=== PATIENT | male | born 1985 | race Caucasian/White ===

== ENCOUNTER → 2020-09-04 | Outpatient (CLI) | payer MEDICAID | END | disposition home or self-care (01) | LOC: LABWHC1 10:00 | PROVIDERS: ATTEND Family Medicine | DX: Z03.89 Encounter for observation for other suspected diseases and conditions ruled out (principal) | CPT/HCPCS: U0003; C9803 ==

== ENCOUNTER → 2020-09-11 | Outpatient (CLI) | payer MEDICAID ==
--- NOTE | 2020-09-11 11:35 | XR ---
EXAMINATION TYPE: XR shoulder complete LT DATE OF EXAM: 09/11/2020 COMPARISON: NONE HISTORY: Pain TECHNIQUE: Three views are submitted. FINDINGS: The osseous structures are intact. There is no acute fracture or dislocation. Mild hypertrophic harris ge of the AC joint. IMPRESSION: 1. Mild AC joint arthropathy.
== END | disposition home or self-care (01) ==
LOC: RADXRMAIN 11:05
PROVIDERS: ATTEND Nurse Practitioner Family
DX: M12.812 Other specific arthropathies, not elsewhere classified, left shoulder (principal)

== ENCOUNTER 2021-06-18 22:12 | Emergency (ER) | payer MEDICAID ==
[2021-06-18 22:51] VITALS: RESP 18
[2021-06-18 23:23] LABS: Basophils % (A) 0 %; Eosinophils # (A) 0.2 k/uL (0-0.7); Eosinophils % (A) 2 %; HCT 45.3 % (39.0-53.0); HGB 15.5 gm/dL (13.0-17.5); Lymphocytes # (A) 2.1 k/uL (1.0-4.8); Lymphocytes % (A) 20 %; MCHC 34.3 g/dL (31.0-37.0); MCV 87.4 fL (80.0-100.0); Mean Platelet Volume 7.1; Monocytes # (A) 0.7 k/uL (0-1.0); Monocytes % (A) 6 %; Neutrophils # (A) 7.4 k/uL (1.3-7.7); Neutrophils % (A) 70 %; Platelet Count 251 k/uL (150-450); RBC 5.18 m/uL (4.30-5.90); RDW 13.7 % (11.5-15.5); WBC 10.6 k/uL (3.8-10.6)
[2021-06-18 23:31] LABS: Appearance,Urine Clear (Clear); Bilirubin,Urine Negative (Negative); Blood,Urine Small (Negative); Color,Urine Yellow; Glucose,Urine (UA) Negative (Negative); Ketones,Urine Negative (Negative); Leukocyte Esterase,Urine Negative (Negative); Mucus,Urine Many /hpf; Nitrite,Urine Negative (Negative); Protein,Urine 1+ (Negative); RBC,Urine 30 /hpf (0-5); Specific Gravity,Urine 1.032 (1.001-1.035); Squamous Epithelial Cell,Urine <1 /hpf (0-4); WBC,Urine 1 /hpf (0-5)
[2021-06-18 23:47] LABS: ALT 31 U/L (4-49); AST 30 U/L (17-59); African American GFR (CKD) >90 (>60 ml/min/1.73 sqM); Albumin 4.6 g/dL (3.5-5.0); Alkaline Phosphatase 101 U/L (38-126); Anion Gap 11 mmol/L; Blood Urea Nitrogen 13 mg/dL (9-20); Calcium 9.5 mg/dL (8.4-10.2); Carbon Dioxide 22 mmol/L (22-30); Chloride 104 mmol/L (98-107); Glucose 151 mg/dL (74-99); Non-African American GFR(CKD) >90 (>60 ml/min/1.73 sqM); Potassium 3.9 mmol/L (3.5-5.1); Sodium 137 mmol/L (137-145); Total Bilirubin 0.4 mg/dL (0.2-1.3); Total Protein 7.5 g/dL (6.3-8.2)
[2021-06-19] MEDS ORDERED: KETOROLAC 15 MG/ML 1 ML VIAL IVP STA (00:09)
[2021-06-19] MEDS ORDERED: SODIUM CHLORIDE 0.9% 1,000 ML IV STA (00:09)
[2021-06-19] MEDS ORDERED: ONDANSETRON 4 MG/2 ML VIAL IVP STA (00:09)
[2021-06-19] MEDS ORDERED: HYDROmorphone 0.5 MG/0.5 ML SYRINGE IVP STA (00:34)
--- NOTE | 2021-06-19 00:47 | CT ---
EXAMINATION TYPE: CT abdomen pelvis wo con DATE OF EXAM: 06/19/2021 COMPARISON: None HISTORY: right flank pain CT DLP: 2020 mGycm Automated exposure control for dose reduction was used. Images obtained from the diaphragm to the floor the pelvis without contrast. Lung bases are clear. There is no pleural effusion. Heart size is normal. There is no pericardial eff usion. Liver spleen stomach pancreas gallbladder appear normal. Bile ducts are nondilated. There is no adrenal mass. Kidneys have normal size. There is mild right-sided hydronephrosis. There is minimal right side periureteral edema. There is 3 mm calculus in the lower right ureter. The bladd er is almost empty. There is no inguinal hernia. There is no free fluid in the pelvis. There is no si gn of thickened appendix. Appendix appears to be medial and appears normal. There is no mesenteric ed frankie. There is no ascites or free air. There is no bowel obstruction. The lumbar vertebra have normal alignment. There is some degenerative disc space narrowing at L4-5 le gina. There is no compression fracture. Bony pelvis is intact. The hip joints are intact. IMPRESSION: Right side hydronephrosis and mild hydroureter with obstructing calculus distal right ureter. No othe r calculus seen. Normal appendix.
--- NOTE | 2021-06-19 00:58 | ED ---
General Adult HPI - General Chief complaint: Abdominal Pain Stated complaint: ABD/Back pain Time Seen by Provider: 06/18/21 23:34 Source: patient Mode of arrival: ambulatory Limitations: no limitations - History of Present Illness Initial comments: 36-year-old male presents to the emergency room for a chief complaint of right flank pain. Patient states this started about 2 hours prior to arrival. Patient states it radiates to his right lower abdomen. Patient states he thinks it is a kidney stone. He has never had a kidney stone but his parents have had them. He admits to nausea denies vomiting. Denies fevers or chills.Patient has no other complaints at this time including shortness of breath, chest pain, abdominal pain, nausea or vomiting, headache, or visual changes. - Related Data Previous Rx's Medication Instructions Recorded Ketorolac [Toradol] 10 mg PO TID #12 tab 06/19/21 Ondansetron [Zofran ODT] 4 mg PO Q8HR PRN #15 tab 06/19/21 Tamsulosin [Flomax] 0.4 mg PO DAILY #20 cap 06/19/21 Allergies Allergy/AdvReac Type Severity Reaction Status Date / Time No Known Allergies Allergy Verified 06/18/21 22:51 Review of Systems ROS Statement: Those systems with pertinent positive or pertinent negative responses have been documented in the HPI. ROS Other: All systems not noted in ROS Statement are negative. Past Medical History Past Medical History: No Reported History History of Any Multi-Drug Resistant Organisms: None Reported Past Surgical History: Tonsillectomy Past Psychological History: No Psychological Hx Reported Smoking Status: Vaper Past Alcohol Use History: Occasional Past Drug Use History: None Reported General Exam Limitations: no limitations General appearance: alert, in no apparent distress Head exam: Present: atraumatic Eye exam: Present: normal appearance, PERRL, EOMI. Absent: scleral icterus ENT exam: Present: normal exam, mucous membranes moist Neck exam: Present: normal inspection, full ROM. Absent: tenderness Respiratory exam: Present: normal lung sounds bilaterally. Absent: respiratory distress, wheezes Cardiovascular Exam: Present: regular rate, normal rhythm, normal heart sounds GI/Abdominal exam: Present: soft. Absent: distended, tenderness Back exam: Present: CVA tenderness (R). Absent: CVA tenderness (L) Course Vital Signs 08/24/21 22:47 Temperature 98 F Pulse Rate 96 Respiratory 18 Rate Blood Pressure 166/107 O2 Sat by Pulse 97 Oximetry Medical Decision Making - Medical Decision Making Vitals are stable. CBC CMP unremarkable. Urinalysis does show blood. CT shows a 3 mm calculus in the right lower ureter. Xray was obtained for radiology purposes. Patient was given pain medication and did have significant improvement in symptoms. At this time patient can be discharged home. Will follow up with urology. He'll return for any worsening symptoms or - Lab Data Result diagrams: 06/18/21 23:01 06/18/21 23:01 Lab Results 06/18/21 06/18/21 06/18/21 Range/Units 23:01 23:01 23:01 WBC 10.6 (3.8-10.6) k/uL RBC 5.18 (4.30-5.90) m/uL Hgb 15.5 (13.0-17.5) gm/dL Hct 45.3 (39.0-53.0) % MCV 87.4 (80.0-100.0) fL MCH 30.0 (25.0-35.0) pg MCHC 34.3 (31.0-37.0) g/dL RDW 13.7 (11.5-15.5) % Plt Count 251 (150-450) k/uL MPV 7.1 Neutrophils % 70 % Lymphocytes % 20 % Monocytes % 6 % Eosinophils % 2 % Basophils % 0 % Neutrophils # 7.4 (1.3-7.7) k/uL Lymphocytes # 2.1 (1.0-4.8) k/uL Monocytes # 0.7 (0-1.0) k/uL Eosinophils # 0.2 (0-0.7) k/uL Basophils # 0.0 (0-0.2) k/uL Sodium 137 (137-145) mmol/L Potassium 3.9 (3.5-5.1) mmol/L Chloride 104 (98-107) mmol/L Carbon Dioxide 22 (22-30) mmol/L Anion Gap 11 mmol/L BUN 13 (9-20) mg/dL Creatinine 0.84 (0.66-1.25) mg/dL Est GFR (CKD-EPI)AfAm >90 (>60 ml/min/1.73 sqM) Est GFR (CKD-EPI)NonAf >90 (>60 ml/min/1.73 sqM) Glucose 151 H (74-99) mg/dL Calcium 9.5 (8.4-10.2) mg/dL Total Bilirubin 0.4 (0.2-1.3) mg/dL AST 30 (17-59) U/L ALT 31 (4-49) U/L Alkaline Phosphatase 101 (38-126) U/L Total Protein 7.5 (6.3-8.2) g/dL Albumin 4.6 (3.5-5.0) g/dL Urine Color Yellow Urine Appearance Clear (Clear) Urine pH 6.0 (5.0-8.0) Ur Specific [place] 1.032 (1.001-1.035) Urine Protein 1+ H (Negative) Urine Glucose (UA) Negative (Negative) Urine Ketones Negative (Negative) Urine Blood Small H (Negative) Urine Nitrite Negative (Negative) Urine Bilirubin Negative (Negative) Urine Urobilinogen 2.0 (<2.0) mg/dL Ur Leukocyte Esterase Negative (Negative) Urine RBC 30 H (0-5) /hpf Urine WBC 1 (0-5) /hpf Ur Squamous Epith Cells <1 (0-4) /hpf Urine Mucus Many H (None) /hpf Disposition Clinical Impression: Kidney stone Disposition: HOME SELF-CARE Condition: Good Instructions (If sedation given, give patient instructions): Kidney Stones (ED) Additional Instructions: Take Toradol as needed for pain. If pain is severe take Tylenol [address] operate machinery. Do not take Motrin while taking Toradol. Follow-up with urology. Return to the emergency room for any worsening symptoms. Prescriptions: Tamsulosin [Flomax] 0.4 mg PO DAILY #20 cap Ketorolac [Toradol] 10 mg PO TID #12 tab Ondansetron [Zofran ODT] 4 mg PO Q8HR PRN #15 tab PRN Reason: Nausea Is patient prescribed a controlled substance at d/c from ED?: No Referrals: Alexx Welch MD [Primary Care Provider] - 1-2 days Mohit Miller MD [STAFF PHYSICIAN] - 1-2 days Time of Disposition: 01:16
--- NOTE | 2021-06-19 01:14 | XR ---
EXAMINATION TYPE: XR KUB DATE OF EXAM: 06/19/2021 COMPARISON: None HISTORY: Right flank pain TECHNIQUE: 2 views upright FINDINGS: Bowel gas pattern is normal. There is no sign of intestinal obstruction or pneumoperitoneum . Fecal pattern is normal. There are no pathologic calcifications over the kidneys. IMPRESSION: Nonacute abdomen.
[2021-06-19] MEDS ORDERED: ACET/COD 300 MG/30 MG STARTER PACK 6 TAB BTL PO STA (01:16)
[2021-06-19 02:34] VITALS: BP 133/86; PULSE 89; TEMP 98.1
== END 2021-06-19 01:58 | disposition home or self-care (01) ==
LOC: EC 22:12
DX: N13.2 Hydronephrosis with renal and ureteral calculous obstruction (principal); F17.290 Nicotine dependence, other tobacco product, uncomplicated
CPT/HCPCS: 36415; 80053; 85025; 81001; 74018; 74176; 96374; 96375 ×2; 96361; 99284; J2405; J1885; J1170

== ENCOUNTER 2021-06-22 02:27 | Observation (INO) | payer MEDICAID ==
[2021-06-22] MEDS ORDERED: MORPHINE SULFATE 4 MG/ML SYRINGE IV STA ×2 (02:57→04:05)
[2021-06-22 03:24] LABS: Basophils % (A) 0 %; Eosinophils # (A) 0.3 k/uL (0-0.7); Eosinophils % (A) 3 %; HGB 14.7 gm/dL (13.0-17.5); Lymphocytes # (A) 1.5 k/uL (1.0-4.8); Lymphocytes % (A) 14 %; MCH 30.2 pg (25.0-35.0); MCV 86.5 fL (80.0-100.0); Mean Platelet Volume 7.1; Monocytes # (A) 0.6 k/uL (0-1.0); Monocytes % (A) 6 %; Neutrophils # (A) 8.2 k/uL (1.3-7.7); Neutrophils % (A) 76 %; Platelet Count 252 k/uL (150-450); RBC 4.85 m/uL (4.30-5.90); RDW 13.5 % (11.5-15.5); WBC 10.7 k/uL (3.8-10.6)
[2021-06-22 03:34] LABS: Amorphous Sediment,Urine Rare /hpf; Appearance,Urine Clear (Clear); Bilirubin,Urine Negative (Negative); Blood,Urine Large (Negative); Color,Urine Yellow; Glucose,Urine (UA) Negative (Negative); Ketones,Urine Negative (Negative); Leukocyte Esterase,Urine Moderate (Negative); Nitrite,Urine Negative (Negative); PH, Urine 5.5 (5.0-8.0); Protein,Urine Negative (Negative); RBC,Urine 1 /hpf (0-5); Specific Gravity,Urine 1.014 (1.001-1.035); Squamous Epithelial Cell,Urine 2 /hpf (0-4); Urobilinogen,Urine <2.0 mg/dL (<2.0); WBC,Urine 13 /hpf (0-5)
[2021-06-22 03:35] LABS: Albumin 4.4 g/dL (3.5-5.0); Calcium 9.3 mg/dL (8.4-10.2); Potassium 4.1 mmol/L (3.5-5.1); Total Bilirubin 0.5 mg/dL (0.2-1.3); Total Protein 7.3 g/dL (6.3-8.2)
[2021-06-22] MEDS ORDERED: ACETAMINOPHEN TAB 325 MG TAB PO PRN (04:27)
[2021-06-22] MEDS ORDERED: NALOXONE 0.4 MG/ML 1 ML VIAL IV PRN (04:27)
[2021-06-22] MEDS ORDERED: HYDROmorphone 0.5 MG/0.5 ML SYRINGE IVP PRN (04:27)
[2021-06-22] MEDS ORDERED: DOCUSATE 100 MG CAP PO PRN (04:27)
[2021-06-22] MEDS ORDERED: KETOROLAC 15 MG/ML 1 ML VIAL IVP PRN (04:27)
[2021-06-22] MEDS ORDERED: MORPHINE SULFATE 4 MG/ML SYRINGE IV PRN (04:27)
[2021-06-22] MEDS ORDERED: ONDANSETRON 4 MG/2 ML VIAL IVP PRN (04:27)
[2021-06-22] MEDS ORDERED: KETOROLAC 15 MG/ML 1 ML VIAL IVP STA (04:29)
[2021-06-22] MEDS ORDERED: SODIUM CHLORIDE 0.9% 1,000 ML IV SCH (04:30)
--- NOTE | 2021-06-22 04:37 | ED ---
Back Pain HPI - General Chief Complaint: Back Pain/Injury Stated Complaint: Abd Pain Time Seen by Provider: 06/22/21 02:42 Source: patient, family Limitations: no limitations - History of Present Illness MD Complaint: back pain -: days(s) Similar Symptoms Previously: Yes Place: home Radiation: groin Severity: severe Quality: sharp Consistency: constant Improves With: medication Worsens With: none Context: other Associated Symptoms: nausea/vomiting Treatments Prior to Arrival: NSAIDS - Related Data Home Medications Medication Instructions Recorded Confirmed Acetaminophen-Codeine 300-30mg 1 - 2 tab PO Q6H PRN 06/22/21 06/22/21 [Tylenol w/codeine #3] Previous Rx's Medication Instructions Recorded Ketorolac [Toradol] 10 mg PO TID #12 tab 06/19/21 Ondansetron [Zofran ODT] 4 mg PO Q8HR PRN #15 tab 06/19/21 Tamsulosin [Flomax] 0.4 mg PO DAILY #20 cap 06/19/21 Ketorolac [Toradol] 10 mg PO Q6HR PRN #20 tab 06/22/21 Allergies Allergy/AdvReac Type Severity Reaction Status Date / Time No Known Allergies Allergy Verified 06/22/21 08:12 Review of Systems ROS Statement: Those systems with pertinent positive or pertinent negative responses have been documented in the HPI. ROS Other: All systems not noted in ROS Statement are negative. Constitutional: Denies: fever, chills Respiratory: Denies: cough, dyspnea Cardiovascular: Denies: chest pain, palpitations Gastrointestinal: Reports: abdominal pain, nausea. Denies: vomiting, diarrhea, constipation Genitourinary: Reports: testicular pain. Denies: dysuria, frequency, hematuria Musculoskeletal: Denies: back pain Skin: Denies: rash Neurological: Denies: headache, weakness Past Medical History Past Medical History: No Reported History Additional Past Medical History / Comment(s): kidney stone History of Any Multi-Drug Resistant Organisms: None Reported Past Surgical History: Tonsillectomy Past Psychological History: No Psychological Hx Reported Smoking Status: Vaper Past Alcohol Use History: Occasional Past Drug Use History: None Reported General Exam Limitations: no limitations General appearance: alert, in no apparent distress Head exam: Present: atraumatic, normocephalic Eye exam: Present: normal appearance. Absent: scleral icterus, conjunctival injection Respiratory exam: Present: normal lung sounds bilaterally. Absent: respiratory distress, wheezes, rales, rhonchi, stridor Cardiovascular Exam: Present: regular rate, normal rhythm, normal heart sounds. Absent: systolic murmur, diastolic murmur, rubs, gallop GI/Abdominal exam: Present: soft. Absent: distended, tenderness, guarding, rebound, rigid, mass Extremities exam: Present: normal inspection, normal capillary refill. Absent: pedal edema, calf tenderness Back exam: Present: normal inspection, CVA tenderness (R). Absent: tenderness, CVA tenderness (L), vertebral tenderness Neurological exam: Present: alert Skin exam: Present: warm, dry, intact, normal color. Absent: rash Course Vital Signs 06/22/21 06/22/21 02:27 05:11 Temperature 98.5 F Pulse Rate 92 78 Respiratory 22 18 Rate Blood Pressure 161/89 130/78 O2 Sat by Pulse 96 97 Oximetry Medical Decision Making - Medical Decision Making Patient is 36-year-old man with continuing pain related to kidney stone. He took his home medications with only mild relief. He has multiple doses of medication here. Discussed follow-up versus admission, patient requesting admnae flores for further pain management. - Lab Data Result diagrams: 06/22/21 03:14 06/22/21 03:14 Lab Results 06/22/21 06/22/21 06/22/21 Range/Units 03:14 03:14 03:14 WBC 10.7 H (3.8-10.6) k/uL RBC 4.85 (4.30-5.90) m/uL Hgb 14.7 (13.0-17.5) gm/dL Hct 42.0 (39.0-53.0) % MCV 86.5 (80.0-100.0) fL MCH 30.2 (25.0-35.0) pg MCHC 35.0 (31.0-37.0) g/dL RDW 13.5 (11.5-15.5) % Plt Count 252 (150-450) k/uL MPV 7.1 Neutrophils % 76 % Lymphocytes % 14 % Monocytes % 6 % Eosinophils % 3 % Basophils % 0 % Neutrophils # 8.2 H (1.3-7.7) k/uL Lymphocytes # 1.5 (1.0-4.8) k/uL Monocytes # 0.6 (0-1.0) k/uL Eosinophils # 0.3 (0-0.7) k/uL Basophils # 0.0 (0-0.2) k/uL Sodium 137 (137-145) mmol/L Potassium 4.1 (3.5-5.1) mmol/L Chloride 105 (98-107) mmol/L Carbon Dioxide 21 L (22-30) mmol/L Anion Gap 11 mmol/L BUN 17 (9-20) mg/dL Creatinine 1.38 H (0.66-1.25) mg/dL Est GFR (CKD-EPI)AfAm 76 (>60 ml/min/1.73 sqM) Est GFR (CKD-EPI)NonAf 66 (>60 ml/min/1.73 sqM) Glucose 134 H (74-99) mg/dL Calcium 9.3 (8.4-10.2) mg/dL Total Bilirubin 0.5 (0.2-1.3) mg/dL AST 21 (17-59) U/L ALT 22 (4-49) U/L Alkaline Phosphatase 105 (38-126) U/L Total Protein 7.3 (6.3-8.2) g/dL Albumin 4.4 (3.5-5.0) g/dL Urine Color Yellow Urine Appearance Clear (Clear) Urine pH 5.5 (5.0-8.0) Ur Specific [place] 1.014 (1.001-1.035) Urine Protein Negative (Negative) Urine Glucose (UA) Negative (Negative) Urine Ketones Negative (Negative) Urine Blood Large H (Negative) Urine Nitrite Negative (Negative) Urine Bilirubin Negative (Negative) Urine Urobilinogen <2.0 (<2.0) mg/dL Ur Leukocyte Esterase Moderate H (Negative) Urine RBC 1 (0-5) /hpf Urine WBC 13 H (0-5) /hpf Ur Squamous Epith Cells 2 (0-4) /hpf Amorphous Sediment Rare H (None) /hpf Disposition Clinical Impression: Kidney stone, Elevated serum creatinine Disposition: HOME SELF-CARE Condition: Good Is patient prescribed a controlled substance at d/c from ED?: Yes When asked, does pt state using other controlled substances?: No If prescribed controlled substance>3 days was MAPS reviewed?: Prescribed <3 Days If opioid is for acute pain is fill amount 7 days or less?: Yes If Rx opioid, was Start Talking consent form obtained?: Yes
[2021-06-22 05:12] VITALS: RESP 18
[2021-06-22 05:55] VITALS: BP 143/84; PULSE 66; TEMP 98.3
[2021-06-22] MEDS ORDERED: FAMOTIDINE 20 MG TAB PO SCH (09:00)
[2021-06-22] MEDS ORDERED: TAMSULOSIN 0.4 MG CAP.ER.24H PO SCH (09:00)
--- NOTE | 2021-06-22 10:32 | P.GSHP ---
History of Present Illness H&P Date: 06/22/21 36-year-old male with a several day history of right sided flank pain. He is in the [facility] emergency room on 06/19/2021 with a distal right ureteral stone. He is given Toradol and Zofran. He is discharged home for spontaneous passage. The pain continued such that he presented back to the emergency room last night. Because of persistent pain in the emergency room doctor contacted me and he is subsequently admitted the hospital. The patient is interviewed at the bedside and he is feeling better this morning. He had last Toradol several hours ago. He has not required any narcotics. He is not nauseated. He has not passed a stone. This is the patient's first stone. There is been no hematuria recently. There's been no fever or chills. - Constitutional Constitutional: Denies chills, Denies fever - EENT Eyes: denies blurred vision, denies pain Ears, nose, mouth and throat: Denies headache, Denies sore throat - Cardiovascular Cardiovascular: Denies chest pain, Denies shortness of breath - Respiratory Respiratory: Denies cough, Denies 7 - Gastrointestinal Gastrointestinal: Denies abdominal pain, Denies diarrhea, Denies nausea, Denies vomiting - Genitourinary (Female) Genitourinary: Denies dysuria, Denies hematuria - Genitourinary (Male) Genitourinary: Denies dysuria, Denies hematuria - Musculoskeletal Musculoskeletal: Denies myalgias - Integumentary Integumentary: Denies pruritus, Denies rash - Neurological Neurological: Denies numbness, Denies weakness - Psychiatric Psychiatric: Denies anxiety, Denies depression - Endocrine Endocrine: Denies fatigue, Denies weight change Past Medical History Past Medical History: No Reported History Additional Past Medical History / Comment(s): kidney stone History of Any Multi-Drug Resistant Organisms: None Reported Past Surgical History: Tonsillectomy Past Psychological History: No Psychological Hx Reported Smoking Status: Vaper Past Alcohol Use History: Occasional Past Drug Use History: None Reported Medications and Allergies Home Medications Medication Instructions Recorded Confirmed Type Ketorolac [Toradol] 10 mg PO TID #12 tab 06/19/21 06/22/21 Rx Ondansetron [Zofran ODT] 4 mg PO Q8HR PRN #15 tab 06/19/21 06/22/21 Rx Tamsulosin [Flomax] 0.4 mg PO DAILY #20 cap 06/19/21 06/22/21 Rx Acetaminophen-Codeine 300-30mg 1 - 2 tab PO Q6H PRN 06/22/21 06/22/21 History [Tylenol w/codeine #3] Ketorolac [Toradol] 10 mg PO Q6HR PRN #20 tab 06/22/21 Rx Allergies Allergy/AdvReac Type Severity Reaction Status Date / Time No Known Allergies Allergy Verified 06/22/21 08:12 Surgical - Exam Vital Signs Temp Pulse Resp BP Pulse Ox 98.5 F 92 22 161/89 96 06/22/21 02:27 06/22/21 02:27 06/22/21 02:27 06/22/21 02:27 06/22/21 02:27 - General well developed, well nourished, no distress - Eyes PERRL - ENT no hearing loss - Neck trachea midline - Respiratory normal expansion, normal respiratory effort - Cardiovascular Rhythm: regular - Abdomen Abdomen: soft, non tender - Genitourinary normal penis with no external lesions, testicles present - Integumentary no growths - Neurologic normal coordination, normal sensation - Musculoskeletal normal posture - Psychiatric oriented to time, oriented to person, oriented to place, speech is normal, memory intact Results - Labs 06/22/21 03:14 06/22/21 03:14 Abnormal Lab Results - Last 24 Hours (Table) 06/22/21 06/22/21 06/22/21 Range/Units 03:14 03:14 03:14 WBC 10.7 H (3.8-10.6) k/uL Neutrophils # 8.2 H (1.3-7.7) k/uL Carbon Dioxide 21 L (22-30) mmol/L Creatinine 1.38 H (0.66-1.25) mg/dL Glucose 134 H (74-99) mg/dL Urine Blood Large H (Negative) Ur Leukocyte Esterase Moderate H (Negative) Urine WBC 13 H (0-5) /hpf Amorphous Sediment Rare H (None) /hpf Diabetes panel 06/22/21 Range/Units 03:14 Sodium 137 (137-145) mmol/L Potassium 4.1 (3.5-5.1) mmol/L Chloride 105 (98-107) mmol/L Carbon Dioxide 21 L (22-30) mmol/L BUN 17 (9-20) mg/dL Creatinine 1.38 H (0.66-1.25) mg/dL Glucose 134 H (74-99) mg/dL Calcium 9.3 (8.4-10.2) mg/dL AST 21 (17-59) U/L ALT 22 (4-49) U/L Alkaline Phosphatase 105 (38-126) U/L Total Protein 7.3 (6.3-8.2) g/dL Albumin 4.4 (3.5-5.0) g/dL Calcium panel 06/22/21 Range/Units 03:14 Calcium 9.3 (8.4-10.2) mg/dL Albumin 4.4 (3.5-5.0) g/dL Pituitary panel 06/22/21 Range/Units 03:14 Sodium 137 (137-145) mmol/L Potassium 4.1 (3.5-5.1) mmol/L Chloride 105 (98-107) mmol/L Carbon Dioxide 21 L (22-30) mmol/L BUN 17 (9-20) mg/dL Creatinine 1.38 H (0.66-1.25) mg/dL Glucose 134 H (74-99) mg/dL Calcium 9.3 (8.4-10.2) mg/dL Adrenal panel 06/22/21 Range/Units 03:14 Sodium 137 (137-145) mmol/L Potassium 4.1 (3.5-5.1) mmol/L Chloride 105 (98-107) mmol/L Carbon Dioxide 21 L (22-30) mmol/L BUN 17 (9-20) mg/dL Creatinine 1.38 H (0.66-1.25) mg/dL Glucose 134 H (74-99) mg/dL Calcium 9.3 (8.4-10.2) mg/dL Total Bilirubin 0.5 (0.2-1.3) mg/dL AST 21 (17-59) U/L ALT 22 (4-49) U/L Alkaline Phosphatase 105 (38-126) U/L Total Protein 7.3 (6.3-8.2) g/dL Albumin 4.4 (3.5-5.0) g/dL - Imaging Abdominal x-ray: report reviewed, image reviewed CT scan - abdomen: report reviewed, image reviewed CT scan - pelvis: report reviewed, image reviewed Assessment and Plan Assessment: Impression: Right ureteral calculus with colic Plan IV fluids and parental pain medication as indicated. Possible stone manipulation.
--- NOTE | 2021-06-22 10:35 | P.DS ---
Providers Date of admission: 06/22/21 04:29 Attending physician: Mohit Miller Primary care physician: Alexx Welch Hospital Course: The patient was admitted the hospital last night because of persistent ureteral colic from a right ureteral stone. He has been trying to pass this for several days. This morning when he is seen he feels much better. He still hasn't passed a stone. We discussed all the treatment options from spontaneous passage to stone manipulation. Patient Condition at Discharge: Good Plan - Discharge Summary Discharge Rx Participant: No New Discharge Prescriptions: New Ketorolac [Toradol] 10 mg PO Q6HR PRN #20 tab PRN Reason: Pain Control No Action Ketorolac [Toradol] 10 mg PO TID #12 tab Acetaminophen-Codeine 300-30mg [Tylenol w/codeine #3] 1 - 2 tab PO Q6H PRN PRN Reason: Pain Tamsulosin [Flomax] 0.4 mg PO DAILY #20 cap Ondansetron [Zofran ODT] 4 mg PO Q8HR PRN #15 tab PRN Reason: Nausea Discharge Medication List Ketorolac [Toradol] 10 mg PO TID #12 tab 06/19/21 [Rx] Ondansetron [Zofran ODT] 4 mg PO Q8HR PRN #15 tab 06/19/21 [Rx] Tamsulosin [Flomax] 0.4 mg PO DAILY #20 cap 06/19/21 [Rx] Acetaminophen-Codeine 300-30mg [Tylenol w/codeine #3] 1 - 2 tab PO Q6H PRN 06/22/21 [History] Ketorolac [Toradol] 10 mg PO Q6HR PRN #20 tab 06/22/21 [Rx] Follow up Appointment(s)/Referral(s): Alexx Welch MD [Primary Care Provider] - 1-2 days Mohit Miller MD [STAFF PHYSICIAN] - 06/28/21 Discharge Disposition: HOME SELF-CARE
== END 2021-06-22 13:12 | disposition home or self-care (01) ==
LOC: EC 02:27 → UNDOADMOB 04:29 → 5NMEDONC 04:29
PROVIDERS: ADMIT Urology; ATTEND Urology
DX: N20.1 Calculus of ureter (principal); Z79.899 Other long term (current) drug therapy
CPT/HCPCS: 96376 ×2; 96375 ×2; 96374; 99284; 36415; 80053; 85025; 81001; G0378; J2270; J1885; J1170

== ENCOUNTER → 2022-01-01 | Outpatient (CLI) | payer MEDICAID ==
[2022-01-01 13:28] VITALS: BP 145/95; PULSE 78; RESP 16; TEMP 98.1; BMI 42.6
--- NOTE | 2022-01-01 14:33 | P.HPBAR ---
Bariatric H&P - History & Physicial H&P Date: 01/01/22 History & Physicial: Visit/CC: Initial Visit Patient initial contact: Initial weight: 140.727 kg Initial weight in pounds: 310.25 Height: 5 ft 11.5 in Initial BMI: 42.6 Last weight: Current weight: 140.727 kg Current weight in pounds: 310.25 Current BMI: 42.6 Hurst body weight (based on NIH guidelines): 79.379 kg Excess body weight loss: 0.0% The patient is a 36 year-old M who presents for Bariatric Assessment. DATE OF SERVICE: 01/01/2022 REASON FOR CONSULTATION: Initial bariatric evaluation. HISTORY OF PRESENT ILLNESS: Isaiah Hernandez is a 36-year-old male who comes with lifelong morbid obesity. He has family history morbid obesity including gallbladder disorder. His sister on her own lost over 100 pounds as she was undergoing weight loss surgery. He reports past history of a 7 years ago of drug abuse. Separately he does report moderate belching with sulfur taste. He reports chronic diarrhea. He reports symptoms has been ongoing for more than several months. He is looking into sleeve gastrectomy however he is open to alternatives. He is looking for weight loss options. He is undergoing several months medical supervised weight loss per insurance including food and exercise journal. He has fatty food intolerance. At height of 5 feet 11.5 inches, ideal body weight is 178 pounds. Highest weight is 310 pounds, body mass index 42.7. He comes in 310 pounds. Body mass index is 42.7. He is 132 pounds overweight. PAST MEDICAL HISTORY: 1. Morbid obesity due to excess calories 2. Body mass index of 42.7 3. Kidney stone PAST SURGICAL HISTORY: 1. Tonsillectomy HOME MEDICATIONS: Home Medications Medication Instructions Recorded Confirmed Acetaminophen-Codeine 300-30mg 1 - 2 tab PO Q6H PRN 06/22/21 01/03/22 [Tylenol w/codeine #3] Previous Rx's Medication Instructions Recorded Ketorolac [Toradol] 10 mg PO TID #12 tab 06/19/21 Ondansetron [Zofran ODT] 4 mg PO Q8HR PRN #15 tab 06/19/21 Tamsulosin [Flomax] 0.4 mg PO DAILY #20 cap 06/19/21 Ketorolac [Toradol] 10 mg PO Q6HR PRN #20 tab 06/22/21 ALLERGIES: Allergies Allergy/AdvReac Type Severity Reaction Status Date / Time No Known Allergies Allergy Verified 06/22/21 08:12 SOCIAL HISTORY: Vapes. He reports past history of 7 years ago of drug abuse. FAMILY HISTORY: No family history of ulcerative colitis disease or Crohn's disease. Family history of morbid obesity. No lupus in the family. No reports of stomach or esophageal cancer. She reports her grandmother had obesity. He has family history morbid obesity including gallbladder disorder. REVIEW OF ORGAN SYSTEMS: CONSTITUTIONAL: At height of 5 feet 11.5 inches, ideal body weight is 178 pounds. Highest weight is 310 pounds, body mass index 42.7. He comes in 310 pounds. Body mass index is 42.7. He is 132 pounds overweight. HEENT: Denies any active troubles with vision or hearing. ENDOCRINE: Denies diabetes. Denies hypothyroidism. CARDIOVASCULAR: Denies past reports of palpitations or heart attacks or chest pain. RESPIRATORY: Has daytime somnolence and snores. GASTROINTESTINAL: Denies any bright red blood per rectum. No diarrhea. No constipation. Has gastroesophageal reflux disease. GENITOURINARY: Denies bladder urgency. No recent blood in urine MUSCULOSKELETAL: Has lower back pain and joint pain. Denies history of bilateral lower extremity edema. NEURO: Denies chronic migraines. No seizure disorders. PSYCH: Denies depression. No suicidal ideation. RHEUMATOLOGIC: No lupus. No rheumatoid arthritis. HEMATOLOGIC: Denies any abnormal bleeding or bruising. Denies past history of DVTs. SKIN: No rash. No skin cancer. PHYSICAL EXAM: VITAL SIGNS: Height 5 foot 11.5 inches, weight 310 pounds. BMI 42.7 Vital Signs Temp 98.1 F 01/01/22 13:26 Pulse 78 01/01/22 13:26 Resp 16 01/01/22 13:26 BP 145/95 01/01/22 13:26 Pulse Ox GENERAL: Well-developed in no acute distress. HEENT: No scleral icterus. Extraocular movements grossly intact. Hears conversational speech. No nasal drainage. NECK: Supple without lymphadenopathy. CHEST: Nonlabored respirations with equal bilateral excursions. CARDIOVASCULAR: Regular rate and regular rhythm. Distal 2+ pulses. ABDOMEN: Obese, soft, nontender, nondistended. MUSCULOSKELETAL: No clubbing, cyanosis. NEURO: No focal or lateralizing signs. Cranial nerves 2 through 12 grossly within normal limits. PSYCH: Appropriate affect. Alert and oriented to person, place and time. SKIN: Good skin turgor. Well perfused. ASSESSMENT: 1. Morbid obesity due to excess calories 2. Body mass index of 42.7 3. Kidney stone PLAN: 1. Surgical options including a band, gastric bypass, sleeve gastrectomy were described in detail. Alternatives such as gastric balloon including duodenal switch were described. 2. The [place] bariatric surgical collaborative data and outcomes calculator were described with surgical options. 3. Recommend a bariatric metabolic panel to evaluate for micro- including macronutrient deficiencies. 4. For history of daytime somnolence, recommend evaluation and treatment for sleep apnea. 5. Dietary surveillance and counseling was reviewed. Increased protein intake over 65 grams daily advised. 6. Will need cardiac risk assessment. 7. Recommend medical risk assessment. 8. Psych assessment per insurance guidelines. 9. Recommend upper endoscopy. 10. Recommend 12-lead EKG. 11. Recommend urine nicotine testing pre-op 12. Recommend urine drug screen 13. Recommend HIDA scan due to gallbladder dysfunction disorder within his family and symptomatology. 14. Recommend ultrasound of the gallbladder. Thank you for this consultation. Past Medical History Past Medical History: No Reported History Additional Past Medical History / Comment(s): kidney stone History of Any Multi-Drug Resistant Organisms: None Reported Past Surgical History: Tonsillectomy Past Psychological History: No Psychological Hx Reported Smoking Status: Vaper Past Alcohol Use History: Occasional Past Drug Use History: None Reported Surgical - Exam Vital Signs Temp Pulse Resp BP 98.1 F 78 16 145/95 01/01/22 13:26 01/01/22 13:26 01/01/22 13:26 01/01/22 13:26 Bariatric Checklist Checklist: Plan: Checklist: EGD: 1. Hiatal hernia: 2. H. Pylori: HgbA1c: Vitamin D: Smoking: Primary care physician referral: Jorge Welch Psychiatry clearance: Cardiology clearance: Sleep study: Diet journal: VTE risk score: VTE risk level: Rehab needs at discharge:
== END ==
LOC: BARWHC3 12:58
PROVIDERS: ATTEND Surgery Plastic and Reconstructive Surgery
DX: E66.01 Morbid (severe) obesity due to excess calories (principal); N20.0 Calculus of kidney; F17.290 Nicotine dependence, other tobacco product, uncomplicated; Z68.41 Body mass index [BMI] 40.0-44.9, adult
CPT/HCPCS: 99202

== ENCOUNTER → 2022-05-21 | Outpatient (CLI) | payer MEDICAID ==
[2022-05-21 22:20] LABS: Hepatitis B Surface AB- Quant 21.5 mIU/mL; Hepatitis B Surface Antibody Reactive (Nonreactive)
== END | disposition home or self-care (01) ==
LOC: LABWHC1 13:48
PROVIDERS: ATTEND Family Medicine
DX: Z71.9 Counseling, unspecified (principal)
CPT/HCPCS: 36415; 86706; 86787

== ENCOUNTER → 2022-05-23 | Outpatient (CLI) | payer MEDICAID ==
[2022-05-23 16:56] LABS: Mumps Virus IgG Ab Interp POSITIVE (NEGATIVE)
== END | disposition home or self-care (01) ==
LOC: LABWHC1 08:14
PROVIDERS: ATTEND Family Medicine
DX: Z13.9 Encounter for screening, unspecified (principal)
CPT/HCPCS: 36415; 86735

== ENCOUNTER → 2022-05-26 | Outpatient (CLI) | payer MEDICAID ==
--- NOTE | 2022-05-26 16:01 | NM ---
EXAMINATION TYPE: NM hepatobiliary w EF DATE OF EXAM: 05/26/2022 COMPARISON: Ultrasound gallbladder same date HISTORY: Epigastric pain TECHNIQUE: After the intravenous administration of 5.1 mCi Tc 99m Mebrofenin hepatobiliary scintigrap hy is performed. Immediate images post injection. FINDINGS: There is satisfactory initial accumulation of tracer by the liver. The gallbladder is visualized wit hin 6 minutes. The small bowel activity is noted within 6 minutes. At one hour 8 ounces of oral ens ure plus is given to mimic CCK and gallbladder ejection fraction is calculated at 68 %, in the normal range. Therefore there is no scintigraphic evidence of cystic or common bile duct obstruction to rodriguez ggest acute cholecystitis or gallbladder dyskinesia. IMPRESSION: Exam is within normal limits.
--- NOTE | 2022-05-26 17:16 | US ---
EXAMINATION TYPE: US gallbladder DATE OF EXAM: 05/26/2022 COMPARISON: CT 06/19/2021 CLINICAL HISTORY: 37-year-old male R10.13 EPIGASTRIC PAIN. Intermittent abdomen pain and diarrhea x c ouple years TECHNIQUE: Multiple sonographic images of the right upper quadrant are obtained. FINDINGS: EXAM MEASUREMENTS: Liver Length: 20.8 cm Gallbladder Wall: 0.2 cm CBD: 0.4 cm Right Kidney: 12.8 x 6.0 x 5.9 cm Limited by large patient body habitus and bowel gas shadowing. Pancreas: Only a small portion the pancreatic body is seen. Remainder is obscured by bowel gas shado wing. Liver: enlarged, echogenic appearance. No focal lesion identified. Gallbladder: wnl Evidence for sonographic Castillo's sign: no CBD: visualized portions wnl Right Kidney: wnl IMPRESSION: 1. Hepatomegaly (20.8 cm) with at least moderate hepatic steatosis. Correlate with LFTs, lipid profil e, and patient risk factors. 2. No gallstones or biliary ductal dilatation.
== END | disposition home or self-care (01) ==
LOC: RADUSWWP 12:18
PROVIDERS: ATTEND Surgery Plastic and Reconstructive Surgery
DX: R16.0 Hepatomegaly, not elsewhere classified (principal); K76.0 Fatty (change of) liver, not elsewhere classified
CPT/HCPCS: 76705; 78226; A9537

== ENCOUNTER 2024-11-20 16:08 | Emergency (ER) | payer MEDICAID ==
[2024-11-20 16:15] VITALS: RESP 18; TEMP 98.6
--- NOTE | 2024-11-20 16:34 | ED ---
Male Urogenital HPI - General Chief complaint: Urogenital Stated complaint: injury Time Seen by Provider: 11/20/24 16:13 Source: patient, RN notes reviewed, old records reviewed Mode of arrival: ambulatory Limitations: no limitations - History of Present Illness Initial comments: This is a 39 male to ER for evaluation of penile pain. Penile shaft pain with significant swelling of the scrotum bruising of the scrotum area. Patient states injury occurred last night while having sexual intercourse. Patient was able to again have sexual intercourse this morning with increasing pain. Patient is able to urinate without blood, increasing pain and swelling of his scrotum MD Complaint: testicle pain, testicle swelling, other (Penile shaft pain) -: days(s) Location: penis, right testicle Radiation: none Severity: severe Severity scale (1-10): 8 Quality: aching, stabbing Consistency: constant Improves with: none Worsens with: none Reports: swelling - Related Data Home Medications Medication Instructions Recorded Confirmed Acetaminophen-Codeine 300-30mg 1 - 2 tab PO Q6H PRN 06/22/21 01/03/22 [Tylenol w/codeine #3] Previous Rx's Medication Instructions Recorded Ketorolac [Toradol] 10 mg PO TID #12 tab 06/19/21 Ondansetron [Zofran ODT] 4 mg PO Q8HR PRN #15 tab 06/19/21 Tamsulosin [Flomax] 0.4 mg PO DAILY #20 cap 06/19/21 Ketorolac [Toradol] 10 mg PO Q6HR PRN #20 tab 06/22/21 Dicyclomine [Bentyl] 20 mg PO QID PRN #30 tablet 07/01/24 Allergies Allergy/AdvReac Type Severity Reaction Status Date / Time cefaclor [From Ceclor] AdvReac Anaphylaxis Verified 11/20/24 16:15 Review of Systems ROS Statement: Those systems with pertinent positive or pertinent negative responses have been documented in the HPI. ROS Other: All systems not noted in ROS Statement are negative. Past Medical History Past Medical History: No Reported History Additional Past Medical History / Comment(s): kidney stone History of Any Multi-Drug Resistant Organisms: None Reported Past Surgical History: Tonsillectomy Past Psychological History: No Psychological Hx Reported Smoking Status: Vaper Past Alcohol Use History: Occasional Past Drug Use History: None Reported General Exam - General Exam Comments Initial Comments: No significant penile fracture noted on penile shaft Patient does have significant hematoma to scrotum right Limitations: no limitations General appearance: alert, in no apparent distress Head exam: Present: atraumatic, normocephalic, normal inspection Eye exam: Present: normal appearance, PERRL, EOMI. Absent: scleral icterus, conjunctival injection, periorbital swelling ENT exam: Present: normal exam, mucous membranes moist Neck exam: Present: normal inspection. Absent: tenderness, meningismus, lymphadenopathy Respiratory exam: Present: normal lung sounds bilaterally. Absent: respiratory distress, wheezes, rales, rhonchi, stridor Cardiovascular Exam: Present: regular rate, normal rhythm, normal heart sounds. Absent: systolic murmur, diastolic murmur, rubs, gallop, clicks GI/Abdominal exam: Present: soft, normal bowel sounds. Absent: distended, tenderness, guarding, rebound, rigid Extremities exam: Present: normal inspection, full ROM, normal capillary refill. Absent: tenderness, pedal edema, joint swelling, calf tenderness Back exam: Present: normal inspection Neurological exam: Present: alert, oriented X3, CN II-XII intact Psychiatric exam: Present: normal affect, normal mood Skin exam: Present: warm, dry, intact, normal color. Absent: rash Course Vital Signs 11/20/24 16:13 Temperature 98.6 F Pulse Rate 105 H Respiratory 18 Rate Blood Pressure 161/94 O2 Sat by Pulse 97 Oximetry - Reevaluation(s) Reevaluation #1: 11/20/24 16:39 Medical records reviewed Reevaluation #4: Was pt. sent in by a medical professional or institution (, PA, PAROLE DIRECTOR, urgent care, hospital, or [place] [facility] facility...) When possible be specific @ -no Did you speak to anyone other than the patient for history (EMS, parent, family, police, friend...)? What history was obtained from this source @ -no Did you review nursing and triage notes (agree or disagree)? Why? @ -agree Are old charts reviewed (outside hosp., previous admission, EMS record, old EKG, old radiological studies, urgent care reports/EKG's, [place] [facility] facility records)? Report findings @ -yes Differential Diagnosis (chest pain, altered mental status, abdominal pain women, abdominal pain men, vaginal bleeding, weakness, fever, dyspnea, syncope, headache, dizziness, GI bleed, back pain, seizure, CVA, palpatations, mental health, musculoskeletal)? @ -prior EKG interpreted by me (3pts min.). @ -yes X-rays interpreted by me (1pt min.). @ -yes negative for acute disease CT interpreted by me (1pt min.). @ -no U/S interpreted by me (1pt. min.). @ -no What testing was considered but not performed or refused? (CT, X-rays, U/S, labs)? Why? @ -none What meds were considered but not given or refused? Why? @ -none Did you discuss the management of the patient with other professionals (professionals i.e. , PA, PAROLE DIRECTOR, lab, RT, psych nurse, social studies teacher, news clipping cutter, teacher, systems support officer, bilingual patient support caseworker)? Give summary @ -no Was smoking cessation discussed for >3mins.? @ -no Was critical care preformed (if so, how long)? @ -no Were there social determinants of health that impacted care today? How? (Homelessness, low income, unemployed, alcoholism, drug addiction, transportation, low edu. Level, literacy, decrease access to med. care, fci, rehab)? @ -none Was there de-escalation of care discussed even if they declined (Discuss DNR or withdrawal of care, Hospice)? DNR status @ -no What co-morbidities impacted this encounter? (DM, HTN, Smoking, COPD, CAD, Cancer, CVA, ARF, Chemo, Hep., AIDS, mental health diagnosis, sleep apnea, morbid obesity)? @ -none Was patient admitted / discharged? Hospital course, mention meds given and route, prescriptions, significant lab abnormalities, going to OR and other pertinent info. @ - Undiagnosed new problem with uncertain prognosis? @ -no Drug Therapy requiring intensive monitoring for toxicity (Heparin, Nitro, Insulin, Cardizem)? @ -no Were any procedures done? @ -no Diagnosis/symptom? @ - Acute, or Chronic, or Acute on Chronic? @ -Acute Uncomplicated (without systemic symptoms) or Complicated (systemic symptoms)? @ -Complicated Side effects of treatment? @ -no Exacerbation, Progression, or Severe Exacerbation? @ -exacerbation Poses a threat to life or bodily function? How? (Chest pain, USA, ID, pneumonia, PE, COPD, DKA, ARF, appy, cholecystitis, CVA, Diverticulitis, Homicidal, Suicidal, threat to staff... and all critical care pts) @ -yes Reevaluation #5: Differential Abdominal Pain Men: Appendicitis, cholecystitis, diverticulosis, ischemic bowel, pancreatitis, hepatitis, UTI, gastroenteritis, AAA, incarcerated hernia, bowel obstruction, constipation, inflammatory bowel, hepatitis, peptic ulcer disease, splenic infarction, perforated viscus, testicular torsion, this is not meant to be an all-inclusive list Medical Decision Making - Medical Decision Making 39 male to ER for evaluation of penile pain. Disposition Clinical Impression: Penile trauma Disposition: HOME SELF-CARE Condition: Fair Is patient prescribed a controlled substance at d/c from ED?: No Referrals: Luis Garduno MD [STAFF PHYSICIAN] - 1-2 days Time of Disposition: 18:00
[2024-11-20] MEDS: ACETAMINOPHEN TAB 500 MG TAB PO STA (16:46)
[2024-11-20] MEDS: traMADol 50 MG TAB PO STA (16:47)
[2024-11-20] MEDS: IBUPROFEN 800 MG TAB PO STA (16:48)
[2024-11-20 17:05] LABS: Appearance,Urine Clear (Clear); Bilirubin,Urine Negative (Negative); Blood,Urine Negative (Negative); Color,Urine Yellow; Glucose,Urine (UA) Negative (Negative); Ketones,Urine Negative (Negative); Leukocyte Esterase,Urine Negative (Negative); Nitrite,Urine Negative (Negative); PH, Urine 5.5 (5.0-8.0); Protein,Urine Trace (Negative); Specific Gravity,Urine 1.028 (1.001-1.035); Urobilinogen,Urine <2.0 mg/dL (<2.0)
--- NOTE | 2024-11-20 17:59 | US ---
EXAMINATION TYPE: US scrotum with doppler. DATE OF EXAM: 11/20/2024 COMPARISON: NONE CLINICAL INDICATION: Male, 39 years old with history of pain; pain swelling and bruising after interc ourse last night Rt>Lt TECHNIQUE: Grayscale, color Doppler and spectral Doppler imaging of the scrotum. FINDINGS: EXAM MEASUREMENTS: TESTICLES: Right Testicle: 5.3x2.8x3.2 cm Left Testicle: 4.7x2.3x2.8 cm EPIDIDYMIS HEAD: Right Epididymis: 1.0 cm Left Epididymis: 1.0 cm Doppler performed to assess for testicular vascularity; good bilateral color flow and spectral wavefo brigette are seen. There is no evidence of testicular torsion. Presence of hydroceles: Complex moderate-sized right hydrocele. Possibility of internal blood product s. Presence of varicoceles: Dilated bilateral pampiniform plexus disease compatible with varicoceles, s lightly more pronounced with Valsalva maneuver. No evidence of testicular fracture or intratesticular hematoma. IMPRESSION: 1. No sonographic evidence of intratesticular mass or torsion. 2. Moderate volume complex right hydrocele. Internal complexity could reflect blood products. 3. Bilateral varicoceles. [facility], , 11/20/2024 5:56 PM
[2024-11-20 18:43] VITALS: BP 154/80; PULSE 98
== END 2024-11-20 18:45 | disposition home or self-care (01) ==
LOC: EC 16:08
DX: I86.1 Scrotal varices (principal); N43.3 Hydrocele, unspecified; F17.290 Nicotine dependence, other tobacco product, uncomplicated; Z88.8 Allergy status to other drugs, medicaments and biological substances
CPT/HCPCS: 76870; 81003; 93975; 99284